=== PATIENT | male | born 1990 | race Hispanic/Latino ===

== ENCOUNTER 2018-04-19 20:40 | Observation (INO) | payer OTHER ==
[2018-04-19] MEDS ORDERED: Sodium Chloride 0.9% 1,000 ML IV STA ×2 (22:55→23:30)
[2018-04-19 23:19] LABS: BASO % 0.2 % (0.0-2.0); HEMOGLOBIN 14.1 g/dL (12.0-18.0); LYMPH # 0.6 K/uL (1.0-4.3); LYMPH % 4.5 % (20.0-40.0); MEAN CELL VOLUME 92.7 fl (80.0-94.0); MEAN CORPUSCULAR HEMOGLOBIN 31.6 pg (27.0-31.0); MEAN CORPUSCULAR HGB CONC 34.1 g/dL (33.0-37.0); MEAN PLATELET VOLUME 8.3 fl (7.2-11.7); MONO # 1.1 K/uL (0.0-0.8); MONO % 8.2 % (0.0-10.0); NEUT # 11.5 K/uL (1.8-7.0); NEUT % 87.1 % (50.0-75.0); PLATELET COUNT 252 K/uL (130-400); RBC 4.45 Mil/uL (4.40-5.90); RED CELL DISTRIBUTION WIDTH 12.8 % (11.5-14.5); WHITE BLOOD COUNT 13.2 K/uL (4.8-10.8)
[2018-04-19 23:28] LABS: ALB/GLOB RATIO 1.6 (1.0-2.1); ALBUMIN 5.1 g/dL (3.5-5.0); ALT/SGPT 79 U/L (21-72); AST/SGOT 46 U/L (17-59); BLOOD UREA NITROGEN 14 mg/dl (9-20); CALCIUM 10.5 mg/dL (8.4-10.2); GFR NON-AFRICAN AMERICAN > 60; LIPASE 497 U/L (23-300)
[2018-04-20] MEDS ORDERED: DiphenhydrAMINE 50 mg/ml Inj IV STA ×2 (00:39→02:53)
[2018-04-20] MEDS ORDERED: Promethazine 12.5 MG in Sodium Chloride 0.9% 50 ML IVPB STA (00:45)
[2018-04-20] MEDS ORDERED: Promethazine 25 MG in Sodium Chloride 0.9% 50 ML IVPB STA ×2 (00:46→03:01)
[2018-04-20] MEDS ORDERED: DiphenhydrAMINE 50 mg/ml Inj ONE ×2 (00:49→02:52)
--- NOTE | 2018-04-20 00:56 | ED PDOC ---
HPI:Nausea, Vomiting, Diarrhea Time Seen by Provider: 04/19/18 22:34 Chief Complaint (Nursing): GI Problem Chief Complaint (Provider): GI Problem History Per: Patient History/Exam Limitations: no limitations Onset/Duration Of Symptoms: Days (x 1 ) Current Symptoms Are (Timing): Still Present Quality Of Discomfort: Other (discomfort) Associated Symptoms: Vomiting Additional Complaint(s): 28 year old male with a history of recurrent vomiting and anxiety presents to the ED for evaluation of vomiting beginning one day ago in the morning associated with mild abdominal discomfort. Patient reports more than 20 episodes of vomiting and that he was unable to take his Klonopin this morning because symptoms. Patient reports the history of recurrent vomiting was initially diagnosed as cyclic vomiting, but he was subsequently told that he was misdiagnosed. Denies diarrhea, cough, shortness of breath, fever and chest pain. PMD: none provided Past Medical History Reviewed: Historical Data, Nursing Documentation, Vital Signs Vital Signs: Last Vital Signs Temp 97.2 F L 04/19/18 21:00 Pulse 116 H 04/19/18 21:00 Resp 16 04/19/18 21:00 BP 137/104 H 04/19/18 21:00 Pulse Ox 100 04/19/18 21:00 - Medical History PMH: Anxiety Other PMH: recurrent vomiting - Surgical History Surgical History: No Surg Hx - Family History Family History: States: Unknown Family Hx - Social History Current smoker - smoking cessation education provided: No Alcohol: None Drugs: Denies - Home Medications Home Medications: Ambulatory Orders Medication Instructions Recorded Amitriptyline [Elavil] 10 mg PO DAILY 04/20/18 DULoxetine [Cymbalta] 60 mg PO DAILY 04/20/18 Ondansetron ODT [Zofran ODT] 4 mg PO Q6 PRN #12 odt 04/20/18 traZODone [Desyrel] 25 mg PO DAILY 04/20/18 - Allergies Allergies/Adverse Reactions: Allergies Allergy/AdvReac Type Severity Reaction Status Date / Time Penicillins Allergy RASH Verified 04/19/18 21:03 Review of Systems ROS Statement: Except As Marked, All Systems Reviewed And Found Negative Constitutional: Negative for: Fever Cardiovascular: Negative for: Chest Pain Respiratory: Negative for: Cough, Shortness of Breath Gastrointestinal: Positive for: Vomiting, Abdominal Pain (mild discomfort ). Negative for: Diarrhea Physical Exam - Reviewed Nursing Documentation Reviewed: Yes Vital Signs Reviewed: Yes - Physical Exam Appears: Positive for: No Acute Distress Head Exam: Positive for: ATRAUMATIC, NORMAL INSPECTION, NORMOCEPHALIC Skin: Positive for: Normal Color, Warm, Dry Eye Exam: Positive for: EOMI, Normal appearance, PERRL ENT: Positive for: Other (dry mucous membranes) Neck: Positive for: Normal, Painless ROM, Supple Cardiovascular/Chest: Positive for: Tachycardia (with regular rhythm). Negative for: Murmur Respiratory: Positive for: Normal Breath Sounds. Negative for: Wheezing, Respiratory Distress Gastrointestinal/Abdominal: Positive for: Normal Exam, Soft. Negative for: Tenderness, Mass, Guarding, Rebound Back: Positive for: Normal Inspection. Negative for: L CVA Tenderness, R CVA Tenderness, Vertebral Tenderness Extremity: Positive for: Normal ROM (x 4). Negative for: Deformity Neurologic/Psych: Positive for: Alert, Oriented (x 3). Negative for: Mot or/Sensory Deficits - Laboratory Results Result Diagrams: 04/19/18 23:14 04/19/18 23:14 Lab Results: Total Bilirubin 0.9 mg/dl (0.2-1.3) 04/19/18 23:14 AST 46 U/L (17-59) 04/19/18 23:14 ALT 79 U/L (21-72) H 04/19/18 23:14 Alkaline Phosphatase 120 U/L (38-126) 04/19/18 23:14 Total Protein 8.4 G/DL (6.3-8.2) H 04/19/18 23:14 Albumin 5.1 g/dL (3.5-5.0) H 04/19/18 23:14 Globulin 3.3 gm/dL (2.2-3.9) 04/19/18 23:14 Albumin/Globulin Ratio 1.6 (1.0-2.1) 04/19/18 23:14 Lipase 497 U/L (23-300) H 04/19/18 23:14 - ECG O2 Sat by Pulse Oximetry: 100 (RA) Pulse Ox Interpretation: Normal - Critical Care Total Time (In Min): 60 Documented Critical Care: Time excludes all time spent performint seperately billable procedures Medical Decision Making Medical Decision Makin:55 Impression: 28 year old male with acute nausea and vomiting Initial Plan: --CMP --CBC --Lipase --Urine dip --Ativan 2 mg IVP --NS IV --Pepcid 20 mg IVP --Zofran 4 mg IV --UA 23:56 --Zofran 4 mg IV 00:39 --Benadryl 25 mg PO --Phenergan 25 in NS 50 ml IVPB 01:30 Labs reviewed and are indicative for significant dehydration. After 4 bolus and PO tolerated, patient reports marked improvement in symptoms. He requested additional IV Ativan which this provider refused and explained to the patient that it was not in his best interest however. 06:04 Patient reports marked improvement of symptoms. Able to tolerate PO and advised to avoid drugs and alcohol. Diagnosis is gastritis. 06:48 Reported he was PO tolerant and then vomited. Now he will be admitted to observation for intractable vomiting He has a history of recurrent vomiting secondary to anxiety/stress requiring 24 hours of hydration. Patient initially hesitant to be admitted citing concern about cost however agreeable subsequently Case referred to Dr. Tineo. Scribe Attestation: Documented by Amparo Alvarado acting as a scribe for Williams Bowman MD Provider Scribe Attestation: All medical record entries made by the Scribe were at my direction and personally dictated by me. I have reviewed the chart and agree that the record accurately reflects my personal performance of the history, physical exam, medical decision making, and the department course for this patient. I have also personally directed, reviewed, and agree with the discharge instructions and disposition. Disposition - Clinical Impression Clinical Impression: Gastritis, Intractable vomiting - Patient ED Disposition Is Patient to be Admitted: Yes - Disposition Disposition Time: 06:50 Condition: FAIR
[2018-04-20 00:59] LABS: BANDS 12 % (0-2); LYMPHOCYTE 4 % (20-50); MONOCYTE 6 % (0-10); NEUTROPHIL 78 % (42-75); TOTAL CELLS COUNTED 100
[2018-04-20 01:00] LABS: PLATELET ESTIMATE NORMAL (NORMAL)
[2018-04-20] MEDS ORDERED: Sodium Chloride 0.9% 1,000 ML IV STA ×2 (02:08→02:57)
[2018-04-20] MEDS: Potassium Ch 20mEq in D5-1/2NS 1,000 ML IV SCH ×2 (08:06→20:05)
[2018-04-20 08:52] LABS: URINE BACTERIA RARE (<OCC); URINE BILIRUBIN NEGATIVE (NEGATIVE); URINE BLOOD NEGATIVE (NEGATIVE); URINE CLARITY CLOUDY (Clear); URINE COLOR YELLOW (YELLOW); URINE GLUCOSE (UA) NEG (NEGATIVE); URINE LEUKOCYTE ESTERASE NEG Leu/uL (Negative); URINE PROTEIN 100 mg/dL (NEGATIVE)
[2018-04-20 08:53] LABS: PHENCYCLIDINE, UR NEGATIVE (NEGATIVE)
[2018-04-20 09:05] LABS: BARBITURATES, UR NEGATIVE (NEGATIVE); BENZODIAZEPINES, UR NEGATIVE (NEGATIVE); OPIATES, UR NEGATIVE (NEGATIVE)
[2018-04-20] MEDS ORDERED: Alum-Mag Hydrox-Simethicone Susp (30 mL) PO ONE (23:08)
[2018-04-20] MEDS ORDERED: Alum-Mag Hydrox-Simethicone Susp (30 mL) ONE (23:10)
[2018-04-21 00:10] VITALS: RESP 20; O2SAT 99
[2018-04-21] MEDS: Potassium Ch 20mEq in D5-1/2NS 1,000 ML IV SCH (00:16)
[2018-04-21] MEDS: Morphine 4 MG/ML VIAL IVP PRN ×2 (00:59→06:55)
[2018-04-21] MEDS ORDERED: Potassium Ch 20mEq in D5-1/2NS 1,000 ML IV SCH (05:30)
[2018-04-21 06:34] LABS: BASO % 0.2 % (0.0-2.0); EOS % 0.1 % (0.0-4.0); HEMOGLOBIN 12.1 g/dL (12.0-18.0); LYMPH # 1.8 K/uL (1.0-4.3); LYMPH % 23.9 % (20.0-40.0); MEAN CELL VOLUME 94.1 fl (80.0-94.0); MEAN CORPUSCULAR HEMOGLOBIN 32.7 pg (27.0-31.0); MEAN CORPUSCULAR HGB CONC 34.8 g/dL (33.0-37.0); MEAN PLATELET VOLUME 8.4 fl (7.2-11.7); MONO # 0.8 K/uL (0.0-0.8); MONO % 11.1 % (0.0-10.0); NEUT # 4.9 K/uL (1.8-7.0); NEUT % 64.7 % (50.0-75.0); NRBC % 0.1 % (0.0-0.0); RBC 3.69 Mil/uL (4.40-5.90); RED CELL DISTRIBUTION WIDTH 13.2 % (11.5-14.5); WHITE BLOOD COUNT 7.6 K/uL (4.8-10.8)
[2018-04-21 06:44] LABS: ALB/GLOB RATIO 1.3 (1.0-2.1); ALBUMIN 3.5 g/dL (3.5-5.0); ALT/SGPT 67 U/L (21-72); AST/SGOT 44 U/L (17-59); BLOOD UREA NITROGEN 13 mg/dl (9-20); CALCIUM 8.7 mg/dL (8.4-10.2); GFR NON-AFRICAN AMERICAN > 60
--- NOTE | 2018-04-21 07:49 | CP.PCM.CON ---
History of Present Illness - History of Present Illness History of Present Illness: Psychiatry consult note CC: "I'm okay" HPI: 28 yo male admitted w/ recurrent vomiting. He reports a history of anxiety and depression. He has been compliant with Cymbalta 60 mg PO Daily and Klonopin 1 mg PO Daily (in divided doses PRN). He denies any significant worsening of his anxiety/depression. He denies acute AH/VH/SI/HI. PPHx: Outpatient psychiatric treatment w/ Dr. Simmons; on Cymbalta and Klonopin; no h/o psychiatric admission or suicide attempts ALL: PCN Impression: 28 yo male w/ h/o depression and anxiety, currently at his baseline psychiatrically. -Continue Cymbalta and Klonopin -Continue outpatient psychiatric treatment -No 1:1 or psychiatric admission indicated at this time Past Patient History - Past Medical History & Family History Past Medical History?: Yes - Past Social History Smoking Status: Current Some Days Smoker - CARDIAC Hx Cardiac Disorders: No - PULMONARY Hx Respiratory Disorders: No - NEUROLOGICAL Hx Neurological Disorder: Yes (Migranes) - HEENT Hx HEENT Problems: No - RENAL Hx Chronic Kidney Disease: No - ENDOCRINE/METABOLIC Hx Endocrine Disorders: No - HEMATOLOGICAL/ONCOLOGICAL Hx Blood Disorders: No - INTEGUMENTARY Hx Dermatological Problems: No - MUSCULOSKELETAL/RHEUMATOLOGICAL Hx Musculoskeletal Disorders: No Hx Falls: No - GASTROINTESTINAL Hx Gastrointestinal Disorders: No - GENITOURINARY/GYNECOLOGICAL Hx Genitourinary Disorders: No - PSYCHIATRIC Hx Psychophysiologic Disorder: Yes Hx Anxiety: Yes Hx Depression: Yes Hx Substance Use: Yes - SURGICAL HISTORY Hx Surgeries: No - ANESTHESIA Hx Anesthesia: No Hx Anesthesia Reactions: No Meds Home Medications: Home Medication List Medication Instructions Recorded Confirmed Type Ondansetron ODT [Zofran ODT] 4 mg PO Q6 PRN #12 odt 04/20/18 Rx Allergies/Adverse Reactions: Allergies Allergy/AdvReac Type Severity Reaction Status Date / Time Penicillins Allergy RASH Verified 04/19/18 21:03 - Medications Medications: Current Medications Amitriptyline HCl (Elavil) 10 mg PO DAILY GI Duloxetine HCl (Cymbalta) 60 mg PO DAILY GI Potassium Chloride/Dextrose/Sod Cl (Potassium Chl 20 Meq In D5-1/2ns) 1,000 mls @ 125 mls/hr IV .Q8H GI Stop: 04/22/18 05:28 Last Admin: 04/21/18 05:42 Dose: 125 mls/hr Lorazepam (Ativan) 1 mg IVP Q6 PRN PRN Reason: Anxiety Stop: 04/21/18 11:14 Last Admin: 04/20/18 23:03 Dose: 1 mg Morphine Sulfate (Morphine) 2 mg IVP Q4 PRN PRN Reason: Pain, severe (8-10) Last Admin: 04/21/18 06:55 Dose: 2 mg Ondansetron HCl (Zofran Inj) 4 mg IVP Q4 PRN PRN Reason: Nausea/Vomiting Last Admin: 04/20/18 23:09 Dose: 4 mg Pantoprazole Sodium (Protonix Inj) 40 mg IVP DAILY [facility] Trazodone HCl (Desyrel) 25 mg PO DAILY [facility] Results - Vital Signs Recent Vital Signs: Last Vital Signs Temp 97.9 F 04/21/18 00:09 Pulse 111 H 04/21/18 00:09 Resp 20 04/21/18 00:09 BP 149/90 04/21/18 00:09 Pulse Ox 99 04/21/18 00:09 - Labs Result Diagrams: 04/21/18 05:40 04/21/18 05:40 Labs: Laboratory Results - last 24 hr 04/20/18 04/20/18 04/21/18 07:12 07:12 05:40 WBC 7.6 RBC 3.69 L Hgb 12.1 D Hct 34.8 L MCV 94.1 H MCH 32.7 H MCHC 34.8 RDW 13.2 Plt Count 185 MPV 8.4 Neut % (Auto) 64.7 Lymph % (Auto) 23.9 [place] % (Auto) 11.1 H Eos % (Auto) 0.1 Baso % (Auto) 0.2 Neut # (Auto) 4.9 Lymph # (Auto) 1.8 [place] # (Auto) 0.8 Eos # (Auto) 0.0 Baso # (Auto) 0.0 Sodium Potassium Chloride Carbon Dioxide Anion Gap BUN Creatinine Est GFR ( Amer) Est GFR (Non-Af Amer) Random Glucose Calcium Total Bilirubin AST ALT Alkaline Phosphatase Total Protein Albumin Globulin Albumin/Globulin Ratio Urine Color Yellow Urine Clarity Cloudy Urine pH 8.0 Ur Specific [place] 1.026 Urine Protein 100 Urine Glucose (UA) Neg Urine Ketones 80 Urine Blood Negative Urine Nitrate Negative Urine Bilirubin Negative Urine Urobilinogen 2.0 Ur Leukocyte Esterase Neg Urine RBC (Auto) 2 Urine Microscopic WBC 1 Urine Bacteria Rare Urine Opiates Screen Negative Urine Methadone Screen Negative Ur Barbiturates Screen Negative Ur Phencyclidine Scrn Negative Ur Amphetamines Screen Negative U Benzodiazepines Scrn Negative U Oth Cocaine Metabols Positive H U Cannabinoids Screen Negative 04/21/18 05:40 WBC RBC Hgb Hct MCV MCH MCHC RDW Plt Count MPV Neut % (Auto) Lymph % (Auto) [place] % (Auto) Eos % (Auto) Baso % (Auto) Neut # (Auto) Lymph # (Auto) [place] # (Auto) Eos # (Auto) Baso # (Auto) Sodium 139 Potassium 3.7 Chloride 107 Carbon Dioxide 26 Anion Gap 10 BUN 13 Creatinine 0.9 Est GFR ( Amer) > 60 Est GFR (Non-Af Amer) > 60 Random Glucose 119 H Calcium 8.7 Total Bilirubin 0.5 AST 44 ALT 67 Alkaline Phosphatase 69 Total Protein 6.2 L Albumin 3.5 D Globulin 2.7 Albumin/Globulin Ratio 1.3 Urine Color Urine Clarity Urine pH Ur Specific [place] Urine Protein Urine Glucose (UA) Urine Ketones Urine Blood Urine Nitrate Urine Bilirubin Urine Urobilinogen Ur Leukocyte Esterase Urine RBC (Auto) Urine Microscopic WBC Urine Bacteria Urine Opiates Screen Urine Methadone Screen Ur Barbiturates Screen Ur Phencyclidine Scrn Ur Amphetamines Screen U Benzodiazepines Scrn U Oth Cocaine Metabols U Cannabinoids Screen
[2018-04-21 08:14] VITALS: BP 118/72; PULSE 94; TEMP 97.8
--- NOTE | 2018-04-21 12:52 | CP.PCM.HP ---
History of Present Illness - History of Present Illness History of Present Illness: CC: Abdiminal pain. 28 y/o M, PMHx Migraine, Depression, Anxiety, substance abuse, walk in ER [facility] on 04[facility]19[facility]18 to be evaluated for abdominal pain/discomfort to epigastric area on day [employer], described as sharp, cramping, intermittent, moderate to severe intensity fo 8:10, associated to nausea/multiple episodes of vomiting, non bilious, non bloody, Pt taking Zofran at home with no relief. Worsening symptoms: Increased anxiety, depression, moderate distress on arrival to hospital. Aggravated factor: ADL's, changing positions. Pt denied: Fever, chills, diarrhea, urinary symptoms, CP, palpitations, syncope, headache, SOB, cough, sick contact, recent travel out of [facility]. Present on Admission - Present on Admission Any Indicators Present on Admission: No Review of Systems - Constitutional Constitutional: Other (negative) - EENT Eyes: Requires Corrective Lenses Ears: Other (negative) Nose/Mouth/Throat: Other (negtaive) - Cardiovascular Cardiovascular: Rapid Heart Rate - Respiratory Respiratory: Other (negative) - Gastrointestinal Gastrointestinal: Abdominal Pain, Nausea, Vomiting - Genitourinary Genitourinary: Other (negative) - Musculoskeletal Musculoskeletal: Other (negative) - Integumentary Integumentary: Other (negative) - Neurological Neurological: Other (negative) - Psychiatric Psychiatric: Anxiety, Depression - Endocrine Endocrine: Other (negative) - Hematologic/Lymphatic Hematologic: Other (negative) Past Patient History - Past Medical History & Family History Past Medical History?: Yes Pertinent Family History: Unknown - Past Social History Smoking Status: Current Some Days Smoker Alcohol: None Drugs: Cocaine Home Situation {Lives}: With Family - CARDIAC Hx Cardiac Disorders: No - PULMONARY Hx Respiratory Disorders: No - NEUROLOGICAL Hx Neurological Disorder: Yes (Migranes) - HEENT Hx HEENT Problems: No - RENAL Hx Chronic Kidney Disease: No - ENDOCRINE/METABOLIC Hx Endocrine Disorders: No - HEMATOLOGICAL/ONCOLOGICAL Hx Blood Disorders: No - INTEGUMENTARY Hx Dermatological Problems: No - MUSCULOSKELETAL/RHEUMATOLOGICAL Hx Musculoskeletal Disorders: No Hx Falls: No - GASTROINTESTINAL Hx Gastrointestinal Disorders: No - GENITOURINARY/GYNECOLOGICAL Hx Genitourinary Disorders: No - PSYCHIATRIC Hx Psychophysiologic Disorder: Yes Hx Anxiety: Yes Hx Depression: Yes Hx Substance Use: Yes - SURGICAL HISTORY Hx Surgeries: No - ANESTHESIA Hx Anesthesia: No Hx Anesthesia Reactions: No Meds Home Medications: Home Medication List Medication Instructions Recorded Confirmed Type Ondansetron ODT [Zofran ODT] 4 mg PO Q6 PRN #12 odt 04/20/18 Rx Allergies/Adverse Reactions: Allergies Allergy/AdvReac Type Severity Reaction Status Date / Time Penicillins Allergy RASH Verified 04/19/18 21:03 Physical Exam - Constitutional Appears: No Acute Distress - Head Exam Head Exam: NORMAL INSPECTION - Eye Exam Eye Exam: PERRL - ENT Exam ENT Exam: Normal Exam - Neck Exam Neck exam: Positive for: Normal Inspection - Respiratory Exam Respiratory Exam: NORMAL BREATHING PATTERN - Cardiovascular Exam Cardiovascular Exam: REGULAR RHYTHM - GI/Abdominal Exam GI & Abdominal Exam: Normal Bowel Sounds, Soft - Extremities Exam Extremities exam: Positive for: normal inspection - Back Exam Back exam: NORMAL INSPECTION - Neurological Exam Neurological exam: Alert, Oriented x3 Additional comments: No motor/sensory deficit - Psychiatric Exam Psychiatric exam: Anxious, Depressed - Skin Skin Exam: Normal Color, Warm Results - Vital Signs Recent Vital Signs: Last Vital Signs Temp 97.8 F 04/21/18 08:13 Pulse 94 H 04/21/18 08:13 Resp 20 04/21/18 08:13 BP 118/72 04/21/18 08:13 Pulse Ox 99 04/21/18 08:13 reviewed Luke - Labs Result Diagrams: 04/21/18 05:40 04/21/18 05:40 Labs: Laboratory Results - last 24 hr 04/21/18 04/21/18 05:40 05:40 WBC 7.6 RBC 3.69 L Hgb 12.1 D Hct 34.8 L MCV 94.1 H MCH 32.7 H MCHC 34.8 RDW 13.2 Plt Count 185 MPV 8.4 Neut % (Auto) 64.7 Lymph % (Auto) 23.9 [place] % (Auto) 11.1 H Eos % (Auto) 0.1 Baso % (Auto) 0.2 Neut # (Auto) 4.9 Lymph # (Auto) 1.8 [place] # (Auto) 0.8 Eos # (Auto) 0.0 Baso # (Auto) 0.0 Sodium 139 Potassium 3.7 Chloride 107 Carbon Dioxide 26 Anion Gap 10 BUN 13 Creatinine 0.9 Est GFR ( Amer) > 60 Est GFR (Non-Af Amer) > 60 Random Glucose 119 H Calcium 8.7 Total Bilirubin 0.5 AST 44 ALT 67 Alkaline Phosphatase 69 Total Protein 6.2 L Albumin 3.5 D Globulin 2.7 Albumin/Globulin Ratio 1.3 reviewed Luke Assessment & Plan (1) Abdominal pain Status: Resolved Priority: High (2) Intractable vomiting Status: Resolved Priority: High (3) Depression with anxiety Status: Chronic Priority: Medium (4) Hx of migraines Status: Chronic Priority: Low - Assessment and Plan (Free Text) Plan: On Zofran,, Desyrel, Elavil, Symbalta, Protonix, Potassium. Psychiatric consult appreciated. Pt feels better, no c/o of abdominal pain, nausea or vomiting, tolerating well regular diet. Pt medical condition improved, stable to be discharged home, see instruction [facility], f/u with PMD in a week. - Date & Time Date: 04/21/18 Time: 13:00
[2018-04-22 16:20] LABS: LIPASE 402 U/L (23-300)
--- NOTE | 2018-04-22 21:11 | CP.PCM.DIS ---
Provider - Provider Date of Admission: 04/20/18 06:48 Attending physician: Jaison Tineo MD Consults: 04/21/18 04:50 Psychiatry Consult Routine Comment: Consulting Provider: Marizol Cortez Consulting Physician: Marizol Cortez Reason for Consult: anxiety/depression Diagnosis - Discharge Diagnosis (1) Abdominal pain Status: Resolved Priority: High (2) Intractable vomiting Status: Resolved Priority: High (3) Depression with anxiety Status: Chronic Priority: Medium (4) Hx of migraines Status: Chronic Priority: Low Hospital Course - Lab Results Lab Results: Most Recent Lab Values WBC 7.6 K/uL (4.8-10.8) 04/21/18 05:40 RBC 3.69 Mil/uL (4.40-5.90) L 04/21/18 05:40 Hgb 12.1 g/dL (12.0-18.0) D 04/21/18 05:40 Hct 34.8 % (35.0-51.0) L 04/21/18 05:40 MCV 94.1 fl (80.0-94.0) H 04/21/18 05:40 MCH 32.7 pg (27.0-31.0) H 04/21/18 05:40 MCHC 34.8 g/dL (33.0-37.0) 04/21/18 05:40 RDW 13.2 % (11.5-14.5) 04/21/18 05:40 Plt Count 185 K/uL (130-400) 04/21/18 05:40 MPV 8.4 fl (7.2-11.7) 04/21/18 05:40 Neut % (Auto) 64.7 % (50.0-75.0) 04/21/18 05:40 Lymph % (Auto) 23.9 % (20.0-40.0) 04/21/18 05:40 [place] % (Auto) 11.1 % (0.0-10.0) H 04/21/18 05:40 Eos % (Auto) 0.1 % (0.0-4.0) 04/21/18 05:40 Baso % (Auto) 0.2 % (0.0-2.0) 04/21/18 05:40 Neut # (Auto) 4.9 K/uL (1.8-7.0) 04/21/18 05:40 Lymph # (Auto) 1.8 K/uL (1.0-4.3) 04/21/18 05:40 [place] # (Auto) 0.8 K/uL (0.0-0.8) 04/21/18 05:40 Eos # (Auto) 0.0 K/uL (0.0-0.7) 04/21/18 05:40 Baso # (Auto) 0.0 K/uL (0.0-0.2) 04/21/18 05:40 Neutrophils % (Manual) 78 % (42-75) H 04/19/18 23:14 Band Neutrophils % 12 % (0-2) H* 04/19/18 23:14 Lymphocytes % (Manual) 4 % (20-50) L 04/19/18 23:14 Monocytes % (Manual) 6 % (0-10) 04/19/18 23:14 Platelet Estimate Normal (NORMAL) 04/19/18 23:14 RBC Morphology Normal (NORMAL) 04/19/18 23:14 Sodium 139 mmol/l (132-148) 04/21/18 05:40 Potassium 3.7 MMOL/L (3.6-5.0) 04/21/18 05:40 Chloride 107 mmol/L (98-107) 04/21/18 05:40 Carbon Dioxide 26 mmol/L (22-30) 04/21/18 05:40 Anion Gap 10 (10-20) 04/21/18 05:40 BUN 13 mg/dl (9-20) 04/21/18 05:40 Creatinine 0.9 mg/dl (0.8-1.5) 04/21/18 05:40 Est GFR ( Amer) > 60 04/21/18 05:40 Est GFR (Non-Af Amer) > 60 04/21/18 05:40 Random Glucose 119 mg/dL (75-110) H 04/21/18 05:40 Calcium 8.7 mg/dL (8.4-10.2) 04/21/18 05:40 Total Bilirubin 0.5 mg/dl (0.2-1.3) 04/21/18 05:40 AST 44 U/L (17-59) 04/21/18 05:40 ALT 67 U/L (21-72) 04/21/18 05:40 Alkaline Phosphatase 69 U/L (38-126) 04/21/18 05:40 Total Protein 6.2 G/DL (6.3-8.2) L 04/21/18 05:40 Albumin 3.5 g/dL (3.5-5.0) D 04/21/18 05:40 Globulin 2.7 gm/dL (2.2-3.9) 04/21/18 05:40 Albumin/Globulin Ratio 1.3 (1.0-2.1) 04/21/18 05:40 Lipase 402 U/L (23-300) H 04/21/18 05:40 Urine Color Yellow (YELLOW) 04/20/18 07:12 Urine Clarity Cloudy (Clear) 04/20/18 07:12 Urine pH 8.0 (5.0-8.0) 04/20/18 07:12 Ur Specific [place] 1.026 (1.003-1.030) 04/20/18 07:12 Urine Protein 100 mg/dL (NEGATIVE) 04/20/18 07:12 Urine Glucose (UA) Neg mg/dL (NEGATIVE) 04/20/18 07:12 Urine Ketones 80 mg/dL (NEGATIVE) 04/20/18 07:12 Urine Blood Negative (NEGATIVE) 04/20/18 07:12 Urine Nitrate Negative (NEGATIVE) 04/20/18 07:12 Urine Bilirubin Negative (NEGATIVE) 04/20/18 07:12 Urine Urobilinogen 2.0 mg/dL (0.2-1.0) 04/20/18 07:12 Ur Leukocyte Esterase Neg Donny/uL (Negative) 04/20/18 07:12 Urine RBC (Auto) 2 /hpf (0-3) 04/20/18 07:12 Urine Microscopic WBC 1 /hpf (0-5) 04/20/18 07:12 Urine Bacteria Rare (<OCC) 04/20/18 07:12 Urine Opiates Screen Negative (NEGATIVE) 04/20/18 07:12 Urine Methadone Screen Negative (NEGATIVE) 04/20/18 07:12 Ur Barbiturates Screen Negative (NEGATIVE) 04/20/18 07:12 Ur Phencyclidine Scrn Negative (NEGATIVE) 04/20/18 07:12 Ur Amphetamines Screen Negative (NEGATIVE) 04/20/18 07:12 U Benzodiazepines Scrn Negative (NEGATIVE) 04/20/18 07:12 U Oth Cocaine Metabols Positive (NEGATIVE) H 04/20/18 07:12 U Cannabinoids Screen Negative (NEGATIVE) 04/20/18 07:12 Discharge Exam - Head Exam Head Exam: NORMAL INSPECTION Discharge Plan - Discharge Medications Prescriptions: Ondansetron ODT [Zofran ODT] 4 mg PO Q6 PRN #12 odt PRN Reason: Nausea/Vomiting - Follow Up Plan Condition: STABLE Disposition: HOME/ ROUTINE Instructions: Gastritis, Nausea and Vomiting, Adult (DC) Additional Instructions: follow up with your primary MD 1 week Referrals: [facility] [place] [Outside] Jaison Tineo MD [Staff Provider] -
== END 2018-04-21 15:50 | disposition home or self-care (01) ==
LOC: H.ER 20:40 → H.ERHOLD 04-20 06:48 → H.MEDSURG1 04-20 23:51
PROVIDERS: ADMIT Internal Medicine Pulmonary Disease; ATTEND Internal Medicine Pulmonary Disease
DX: K29.70 Gastritis, unspecified, without bleeding (principal); F41.8 Other specified anxiety disorders; G43.909 Migraine, unspecified, not intractable, without status migrainosus; F19.90 Other psychoactive substance use, unspecified, uncomplicated; F17.210 Nicotine dependence, cigarettes, uncomplicated; Z88.0 Allergy status to penicillin
CPT/HCPCS: 36415; 80053; 80324; 80345; 80346; 80349; 80353; 80358; 80361; 81003; 83690; 83992; 85025; 96374; 96375; 96376; 99285; C9113; G0378; J1200; J2060; J2270; J2405; J2550; J7030

== ENCOUNTER 2018-06-08 17:59 | Emergency (ER) | payer OTHER ==
[2018-06-08] MEDS ORDERED: Sodium Chloride 0.9% 1,000 ML IV STA (19:06)
--- NOTE | 2018-06-08 19:16 | ED PDOC ---
HPI:Nausea, Vomiting, Diarrhea Time Seen by Provider: 06/08/18 18:15 Chief Complaint (Nursing): GI Problem Chief Complaint (Provider): Vomiting History Per: Patient History/Exam Limitations: no limitations Onset/Duration Of Symptoms: Days (x1) Current Symptoms Are (Timing): Still Present Additional Complaint(s): 28 year old male with pmhx including anxiety and intractable vomiting (cyclical vomiting), pancreatitis, presents to the ED for evaluation of intractable vom iting for the past day associated with nausea. He is requesting Ativan for his anxiety and nausea medication. Patient states he is a frequent drinker and his last drink was three days ago. Otherwise, denies fever and chills. PMD: none provided Past Medical History Reviewed: Historical Data, Nursing Documentation, Vital Signs Vital Signs: Last Vital Signs Temp 98.2 F 06/08/18 18:11 Pulse 98 H 06/08/18 18:11 Resp 16 06/08/18 18:11 BP Pulse Ox 98 06/08/18 18:11 - Medical History PMH: Anxiety, Depression, Gastritis, Pancreatitis (alcohol induced) Denies: Chronic Kidney Disease Other PMH: intractable vomiting - Surgical History Surgical History: No Surg Hx - Family History Family History: States: Unknown Family Hx - Social History Current smoker - smoking cessation education provided: No Alcohol: Other (hx of abuse, last drink 3 days ago) Drugs: Denies - Home Medications Home Medications: Ambulatory Orders Medication Instructions Recorded Amitriptyline [Elavil] 10 mg PO DAILY 04/20/18 DULoxetine [Cymbalta] 60 mg PO DAILY 04/20/18 Ondansetron ODT [Zofran ODT] 4 mg PO Q6 PRN #12 odt 04/20/18 traZODone [Desyrel] 25 mg PO DAILY 04/20/18 - Allergies Allergies/Adverse Reactions: Allergies Allergy/AdvReac Type Severity Reaction Status Date / Time Penicillins Allergy RASH Verified 06/08/18 18:11 Review of Systems ROS Statement: Except As Marked, All Systems Reviewed And Found Negative Constitutional: Negative for: Fever, Chills Gastrointestinal: Positive for: Nausea, Vomiting Physical Exam - Reviewed Nursing Documentation Reviewed: Yes Vital Signs Reviewed: Yes - Physical Exam Appears: Positive for: No Acute Distress (but very anxious appearing) Head Exam: Positive for: ATRAUMATIC, NORMAL INSPECTION, NORMOCEPHALIC Skin: Positive for: Normal Color, Warm Eye Exam: Positive for: Normal appearance ENT: Positive for: Normal ENT Inspection Neck: Positive for: Normal, Painless ROM, Supple Cardiovascular/Chest: Positive for: Regular Rate, Rhythm Respiratory: Positive for: Normal Breath Sounds. Negative for: Respiratory Distress Gastrointestinal/Abdominal: Positive for: Normal Exam, Soft. Negative for: Tenderness, Mass, Guarding, Rebound Back: Positive for: Normal Inspection Extremity: Positive for: Normal ROM (all extremities) Neurological/Psych: Positive for: Awake, Alert, Oriented (x3). Negative for: Motor/Sensory Deficits - Laboratory Results Result Diagrams: 06/08/18 19:47 06/08/18 19:47 - ECG O2 Sat by Pulse Oximetry: 98 (RA) Pulse Ox Interpretation: Normal Medical Decision Making Medical Decision Making: Time: 1905 Initial Impression: intractable vomiting, cyclical vomiting. pt very agitated. Initial Plan: --CMP --Lipase --CBC with differential --Normal saline IV --Pepcid 20mg IVP --Zofran 4mg PO --Drug screen --Alcohol serum --Reevaluate [address] and requesting Ativan again. Discussed case with patients mother, Amy Culver, via phone call which patient gave permission for. She reports this is patients 20th episode of cyclic vomiting in the past four years which is triggered by alcohol/drugs/stress. She notes he is on Cymbalta Klonopin, and Amitriptyline at home, and when he gets in one of these episodes it is best to treat him with Ativan, Benadryl, and Zofran. not to give reglan he has reaction to it. [id number] cartagena pending reeval, CT and final dispo Scribe Attestation: Documented by Linda Lara, acting as a scribe for Laura Coyle MD. Provider Scribe Attestation: All medical record entries made by the Scribe were at my direction and personally dictated by me. I have reviewed the chart and agree that the record accurately reflects my personal performance of the history, physical exam, medical decision making, and the department course for this patient. I have also personally directed, reviewed, and agree with the discharge instructions and disposition. Disposition - Clinical Impression Clinical Impression: Abdominal pain, Hx of migraines, Depression with anxiety - Patient ED Disposition Is Patient to be Admitted: Yes - Disposition Disposition: Transfer of Care Disposition Time: 23:00 Condition: STABLE Forms: [employer] (French) Patient Signed Over To: Titus Cartagena
[2018-06-08 19:52] LABS: BASO % 0.4 % (0.0-2.0); HEMOGLOBIN 14.4 g/dL (12.0-18.0); LYMPH # 1.3 K/uL (1.0-4.3); LYMPH % 12.8 % (20.0-40.0); MEAN CELL VOLUME 92.2 fl (80.0-94.0); MEAN CORPUSCULAR HEMOGLOBIN 32.1 pg (27.0-31.0); MEAN CORPUSCULAR HGB CONC 34.8 g/dL (33.0-37.0); MEAN PLATELET VOLUME 8.9 fl (7.2-11.7); MONO # 0.8 K/uL (0.0-0.8); MONO % 7.8 % (0.0-10.0); NEUT # 8.3 K/uL (1.8-7.0); RBC 4.5 Mil/uL (4.40-5.90); RED CELL DISTRIBUTION WIDTH 12.1 % (11.5-14.5); WHITE BLOOD COUNT 10.5 K/uL (4.8-10.8)
[2018-06-08 20:06] LABS: ALB/GLOB RATIO 1.6 (1.0-2.1); ALBUMIN 5.1 g/dL (3.5-5.0); ALT/SGPT 46 U/L (21-72); AST/SGOT 36 U/L (17-59); BLOOD UREA NITROGEN 15 mg/dl (9-20); CALCIUM 10.7 mg/dL (8.4-10.2); GFR NON-AFRICAN AMERICAN > 60; LIPASE 747 U/L (23-300)
[2018-06-08] MEDS ORDERED: Iohexol 240 (50 ml) PO ONE (20:09)
[2018-06-08] MEDS ORDERED: DiphenhydrAMINE 50 mg/ml Inj IVP STA (21:46)
[2018-06-08] MEDS ORDERED: DiphenhydrAMINE 50 mg/ml Inj ONE (22:05)
[2018-06-09] MEDS ORDERED: Sodium Chloride 0.9% 1,000 ML IV STA ×2 (00:49→03:47)
[2018-06-09] MEDS ORDERED: Sodium Chloride 0.9% 50 ML IV ONE (01:06)
[2018-06-09] MEDS ORDERED: Iohexol 300 100 ML IJ ONE (01:06)
[2018-06-09 04:13] LABS: URINE BILIRUBIN NEGATIVE (NEGATIVE); URINE BLOOD NEGATIVE (NEGATIVE); URINE CLARITY CLEAR (Clear); URINE COLOR YELLOW (YELLOW); URINE GLUCOSE (UA) NEG (NEGATIVE); URINE LEUKOCYTE ESTERASE NEG Leu/uL (Negative); URINE PROTEIN 30 mg/dL (NEGATIVE); URINE UROBILINOGEN 0.2-1.0 mg/dL (0.2-1.0)
--- NOTE | 2018-06-09 04:22 | ED PDOC ---
- Laboratory Results Result Diagrams: 06/08/18 19:47 06/08/18 19:47 Lab Results: Total Bilirubin 0.9 mg/dl (0.2-1.3) 06/08/18 19:47 AST 36 U/L (17-59) 06/08/18 19:47 ALT 46 U/L (21-72) 06/08/18 19:47 Alkaline Phosphatase 91 U/L (38-126) 06/08/18 19:47 Total Protein 8.3 G/DL (6.3-8.2) H 06/08/18 19:47 Albumin 5.1 g/dL (3.5-5.0) H D 06/08/18 19:47 Globulin 3.2 gm/dL (2.2-3.9) 06/08/18 19:47 Albumin/Globulin Ratio 1.6 (1.0-2.1) 06/08/18 19:47 Lipase 747 U/L (23-300) H 06/08/18 19:47 - ECG O2 Sat by Pulse Oximetry: 100 Medical Decision Making Medical Decision Makin Patient endorsed to me by Dr. Coyle pending CT and re-eval 0 Patient reports continued nausea and abdominal pain. Will give haldol given conversation with mother informing that haldol has helped in the past, and also for possible cannabinoid induced hyperemesis syndrome [address] SCAN OF THE ABDOMEN AND PELVIS WITH CONTRAST. CLINICAL HISTORY: Abdominal pain. TECHNIQUE: Multiple axial and coronal CT images were obtained through the abdomen and pelvis after administration of intravenous contrast material. COMMENTS: Mild diffuse thickening of the small bowels. The liver is of uniform attenuation without mass or defect. There is no intra or extrahepatic biliary ductal dilatation. The spleen is normal. The gallbladder is within normal limits. The pancreas is of normal contour and attenuation characteristics. There is no evidence of adrenal mass. Both kidneys demonstrate prompt and equal nephrograms. The kidneys are normal in size, shape and configuration. There is no evidence of renal or ureteral mass. No renal or ureteral calculi are identified. There is no hydroureter or hydronephrosis. No evidence for appendicitis. No evidence for small or large bowel obstruction. There is no evidence of abdominal ascites or lymphadenopathy. There is no evidence of intrinsic or extrinsic bladder mass. There is no pelvic ascites or lymphadenopathy. Images of the lung bases show no evidence of pleural or parenchymal mass. There are no pleural effusions. The bony structures are free of lytic or blastic lesions. IMPRESSION: Mild uncomplicated enteritis. Thank you for your kind referral of this patient. Electronically signed on Jun 09, 2018 2:11:58 AM EDT by: Cielo Zelaya M.D., Certified by ABR, MSK, Neuroradiology Patient is feeling much better, states he feels dehydrated still but is able to keep down PO fluids, has still not been able to uriante, 4th liter ordered 430 Patient postive for cannabis and opiates, further supporting diagnosis of cannabinoid induced hyperemesis syndrome Patient walking around E.R., asking to shower, tolerating fluids PAtient now stable for discharge, advised plenty of fluids, rest, and close GI followup Well appearing upon discharge Disposition Counseled Patient/Family Regarding: Studies Performed, Diagnosis, Need For Follo wup - Clinical Impression Clinical Impression: Abdominal pain, Depression with anxiety, Vomiting - POA Present On Arrival: None - Disposition Referrals: Tyrel Mccray MD [Staff Provider] - Disposition: Routine/Home Disposition Time: 04:37 Condition: IMPROVED Prescriptions: Ondansetron ODT [Zofran ODT] 4 mg PO Q8 PRN #12 odt PRN Reason: Nausea/Vomiting Instructions: Acute Abdomen (Belly Pain), Adult (DC), Nausea and Vomiting, Adult, Marijuana Use and Addiction Forms: [employer] (Italian)
[2018-06-09 04:26] LABS: BENZODIAZEPINES, UR NEGATIVE (NEGATIVE)
[2018-06-09 04:30] LABS: BARBITURATES, UR NEGATIVE (NEGATIVE); OPIATES, UR POSITIVE (NEGATIVE); PHENCYCLIDINE, UR NEGATIVE (NEGATIVE)
[2018-06-09 05:43] VITALS: BP 135/89; PULSE 81; RESP 16; TEMP 98.7; O2SAT 98
--- NOTE | 2018-06-09 12:46 | CT ---
Date of service: 06/09/2018 PROCEDURE: CT Abdomen and Pelvis with contrast HISTORY: abd pain COMPARISON: None. TECHNIQUE: Following the intravenous administration of iodinated contrast material, a CT examination of the abdomen and pelvis was performed from the domes of the diaphragms to the symphysis pubis with reformatted datasets provided in axial, sagittal and coronal planes. Oral contrast was not administered as per referring physician request. Contrast dose: Omnipaque 300, 90 cc Radiation dose: Total exam DLP = 237.11 mGy-cm. This CT exam was performed using one or more of the following dose reduction techniques: Automated exposure control, adjustment of the mA and/or kV according to patient size, and/or use of iterative reconstruction technique. FINDINGS: LOWER THORAX: Unremarkable. LIVER: Unremarkable. No gross lesion or ductal dilatation. GALLBLADDER AND BILE DUCTS: Unremarkable. PANCREAS: Unremarkable. No gross lesion or ductal dilatation. SPLEEN: Unremarkable. ADRENALS: Unremarkable. No mass. KIDNEYS AND URETERS: Unremarkable. No hydronephrosis. No solid mass. VASCULATURE: Unremarkable. No aortic aneurysm. No aortic atherosclerotic calcification or mural plaque present. BOWEL: The stomach is collapsed and not well evaluated. Similarly, the small bowel is collapsed in general and mural thickening is difficult to evaluate but may be present. This is also true for the transverse colon segment. Local mesenteric hazy densities appreciated adjacent to right-sided transverse colon as well as a few small bowel loops at the right jennifer abdomen. The pattern is suspicious for mild enterocolitis. No bowel obstruction or free intra peritoneal gas collection. No abscess identified. APPENDIX: No CT evidence of appendicitis. The appendix not clearly identified. PERITONEUM: Limited enteric reaction right jennifer abdomen particularly at right upper quadrant as discussed above but separate from gallbladder. No free fluid. No free air. LYMPH NODES: Unremarkable. No enlarged lymph nodes. BLADDER: Unremarkable. REPRODUCTIVE: Unremarkable. BONES: No acute fracture. OTHER FINDINGS: None. IMPRESSION: 1. Pattern suspicious for limited enterocolitis without abscess, free air or prominent ascites. Please see discussion above. No bowel obstruction appreciable. 2. Examination otherwise unremarkable appearing. Concordant preliminary report from [employer], 06/09/2018, 2:11 a.m..
== END 2018-06-09 05:42 | disposition home or self-care (01) ==
LOC: H.ER 17:59
DX: R11.10 Vomiting, unspecified (principal); R10.9 Unspecified abdominal pain; F32.9 Major depressive disorder, single episode, unspecified; F41.9 Anxiety disorder, unspecified; Z88.0 Allergy status to penicillin; K52.9 Noninfective gastroenteritis and colitis, unspecified; F12.10 Cannabis abuse, uncomplicated
CPT/HCPCS: 74177; 80053; 80320; 80324; 80345; 80346; 80349; 80353; 80358; 80361; 81003; 83690; 83992; 85025; 96372; 96374; 96375; 96376; 99284; J1200; J1630; J1885; J2060; J2405; J7030; Q9967